=== PATIENT | female | born 1940 | race Caucasian/White ===

== ENCOUNTER 2017-12-05 18:57 | Emergency (ER) | payer MEDICARE ==
[2017-12-05] MEDS ORDERED: HYDROCODONE/ACETAMINOPHEN 10/325 MG TAB ONE (19:19)
== END 2017-12-05 20:23 | disposition home or self-care (01) ==
LOC: EDH 18:57
DX: M10.031 Idiopathic gout, right wrist (principal); I10 Essential (primary) hypertension
CPT/HCPCS: 73090; 73130

== ENCOUNTER 2018-01-19 15:11 | Observation (INO) | payer MEDICARE ==
[~2018-01-19] VITALS: Ht 167.6 cm; Wt 62.0 kg
[2018-01-19 16:42] LABS: BILIRUBIN,URINE Negative (NEGATIVE); COLOR,URINE Yellow (YELLOW); GLUCOSE, URINE (UA) Negative (NEGATIVE); KETONES,URINE Negative (NEGATIVE); LEUKOCYTE ESTERASE ,URINE Large (NEGATIVE); NITRATE,URINE Positive (NEGATIVE); OCCULT BLOOD,URINE Large (NEGATIVE); PH,URINE 7.5 (5.0-8.0); PROTEIN,URINE Negative (NEGATIVE)
[2018-01-19 16:47] LABS: APPEARANCE,URINE TURBID (CLEAR)
[2018-01-19 16:58] LABS: BACTERIA,URINE Many /HPF (None Seen); WBC,URINE 51-100 /HPF (0-1)
[2018-01-19 17:03] LABS: SQUAMOUS EPITHELIAL CELL,UR 0-2 /LPF (0-2)
[2018-01-19 17:24] LABS: BASOPHILS % (AUTO) 0.4 % (0.0-5.0); EOSINOPHILS % (AUTO) 0.4 % (0.0-8.0); HEMATOCRIT 39.9 % (36-48); LYMPHOCYTES % (AUTO) 15.1 % (21.0-51.0); MEAN CORPUSCULAR HEMOGLOBIN 30.7 pg (27.0-33.0); MEAN CORPUSCULAR HGB CONC 34.4 g/dL (32.0-36.0); MEAN CORPUSCULAR VOLUME 89.1 fL (79-99); MONOCYTES % (AUTO) 13.1 % (3.0-13.0); PLATELET COUNT (AUTO) 333 K/uL (130-400); RED BLOOD CELL COUNT(AUTO) 4.47 MIL/uL (4.00-5.50); RED CELL DISTRIBUTION WIDTH 14.1 % (11.0-15.5); WHITE BLOOD COUNT (AUTO) 9.4 K/uL (4.8-10.8)
[2018-01-19 17:33] LABS: CREATININE 1.2 mg/dL (0.5-1.5); INR 0.93 (0.85-1.15); PARTIAL THROMBOPLASTIN TIME 25.4 SEC (26.3-35.5); PROTHROMBIN TIME 9.8 SEC (9.6-11.6)
[2018-01-19 17:37] LABS: ALBUMIN 3.7 g/dL (3.5-5.0); BILIRUBIN,TOTAL 0.4 mg/dL (0.2-1.0); TOTAL PROTEIN, SERUM 8.2 g/dL (6.0-8.3)
[2018-01-19] MEDS ORDERED: CEFTRIAXONE SODIUM 1 GM ONE (20:22)
[2018-01-19 22:06] VITALS: BP 170/74
[2018-01-19] MEDS ORDERED: ZOLPIDEM TARTRATE 5 MG TAB PO PRN (23:00)
[2018-01-19] MEDS ORDERED: CLONIDINE HCL 0.2 MG TABLET PO PRN (23:00)
[2018-01-19] MEDS ORDERED: CEFTRIAXONE 1GM/D5W 50ML 50 ML IV SCH (23:30)
[2018-01-19] MEDS ORDERED: TRAMADOL HCL 50 MG TABLET PO PRN (23:30)
[2018-01-19] MEDS ORDERED: HYDROCODONE/ACETAMINOPHEN 5/325 MG TAB PO PRN (23:30)
[2018-01-19] MEDS ORDERED: SODIUM CHLORIDE 0.9% 1000ML 1,000 ML IV ONE (23:42)
[2018-01-19] MEDS ORDERED: ZOLPIDEM TARTRATE 5 MG TAB ONE (23:43)
[2018-01-19] MEDS ORDERED: CLONIDINE HCL 0.2 MG TABLET PO ONE (23:44)
[2018-01-20] MEDS: CEFTRIAXONE SODIUM 1 GM IVP SCH (00:30)
[2018-01-20 03:30] VITALS: BP_SYST 116; BP_SYST 99; BP_DIAS 59; BP_DIAS 60
[2018-01-20 07:12] LABS: HEMATOCRIT 30.7 % (36-48); MEAN CORPUSCULAR HEMOGLOBIN 31.8 pg (27.0-33.0); MEAN CORPUSCULAR HGB CONC 35.3 g/dL (32.0-36.0); MEAN CORPUSCULAR VOLUME 90.1 fL (79-99); PLATELET COUNT (AUTO) 259 K/uL (130-400); RED CELL DISTRIBUTION WIDTH 14.2 % (11.0-15.5); WHITE BLOOD COUNT (AUTO) 6.2 K/uL (4.8-10.8)
[2018-01-20 07:31] LABS: ALBUMIN 2.6 g/dL (3.5-5.0); BILIRUBIN,TOTAL 0.3 mg/dL (0.2-1.0); CREATININE 1.2 mg/dL (0.5-1.5); POTASSIUM 4.9 mmol/L (3.5-5.1); TOTAL PROTEIN, SERUM 5.9 g/dL (6.0-8.3)
[2018-01-20 08:00] VITALS: BP 111/65
[2018-01-20] MEDS: SODIUM CHLORIDE 0.9% 1000ML 1,000 ML IV SCH ×2 (09:10→23:02)
[2018-01-20] MEDS: PANTOPRAZOLE SODIUM 40 MG TABLET.DR PO SCH (09:11)
[2018-01-20 12:00] VITALS: BP 138/71
[2018-01-20] MEDS ORDERED: VALS320T15 PO (15:07)
[2018-01-20] MEDS ORDERED: MELO-106 PO (15:07)
[2018-01-20 16:00] VITALS: BP 111/60
[2018-01-20 19:05] VITALS: BP 109/55
[2018-01-20 23:35] VITALS: BP 139/60
[2018-01-21] MEDS: CEFTRIAXONE SODIUM 1 GM IVP SCH (00:23)
[2018-01-21] MEDS: SODIUM CHLORIDE 0.9% 1000ML 1,000 ML IV SCH ×2 (04:14→09:17)
[2018-01-21 08:00] VITALS: BP 168/91
[2018-01-21] MEDS ORDERED: MELOXICAM 7.5 MG TABLET PO SCH (09:00)
[2018-01-21] MEDS ORDERED: LOSARTAN 100 MG TABLET PO SCH (09:00)
[2018-01-21] MEDS: PANTOPRAZOLE SODIUM 40 MG TABLET.DR PO SCH (09:14)
[2018-01-21 12:00] VITALS: BP 136/74
== END 2018-01-21 12:46 | disposition home or self-care (01) ==
LOC: EDH 15:11 → EDHIP 20:31 → 3AH 22:15
PROVIDERS: ADMIT Family Medicine; ATTEND Family Medicine
DX: N39.0 Urinary tract infection, site not specified (principal); R10.9 Unspecified abdominal pain; I10 Essential (primary) hypertension; W17.89XA Other fall from one level to another, initial encounter; Y93.89 Activity, other specified; Y92.89 Other specified places as the place of occurrence of the external cause; Y99.8 Other external cause status; Z90.49 Acquired absence of other specified parts of digestive tract
CPT/HCPCS: 36415 ×2; 72131; 72192; 73502; 80053 ×2; 81001; 85025; 85027; 85610; 85730; 87040; 87088; 87186; 96361 ×2; 96374; 97116; 97161; 99285; A4218; G0378 ×40; G8978; G8979; G8980; G8981; G8982; G8983; J0696 ×3; J7030 ×2

== ENCOUNTER → 2018-02-04 | Outpatient (CLI) | payer MEDICARE ==
[~2018-02-04] MED LIST: MELO-106 PO; VALS320T15 PO
== END | disposition home or self-care (01) ==
LOC: OIH 12:26
PROVIDERS: ATTEND Family Medicine
DX: M25.561 Pain in right knee (principal); I10 Essential (primary) hypertension
CPT/HCPCS: 73562

== ENCOUNTER → 2019-02-21 | Outpatient (CLI) | payer MEDICARE ==
[~2019-02-21] MED LIST changes: +ATEN25TA PO; +BIOTIN PO; +CHOL500050 PO; +COQ10 PO; +MULT1CAP32 PO; +SIMV10TA6 PO; +TRAM50TA4 PO; -VALS320T15 PO; +VALS320T16 PO
== END | disposition home or self-care (01) ==
LOC: RAH 13:33
PROVIDERS: ATTEND Orthopaedic Surgery
DX: M16.11 Unilateral primary osteoarthritis, right hip (principal); M70.71 Other bursitis of hip, right hip; K57.90 Diverticulosis of intestine, part unspecified, without perforation or abscess without bleeding
CPT/HCPCS: 73721

== ENCOUNTER → 2019-08-21 | Outpatient (CLI) | payer MEDICARE ==
[~2019-08-21] MED LIST changes: -MELO-106 PO; -SIMV10TA6 PO; +SIMV10TA97 PO
== END | disposition home or self-care (01) ==
LOC: OIH 09:27
PROVIDERS: ATTEND Neurological Surgery
DX: M43.26 Fusion of spine, lumbar region (principal); M51.36 Other intervertebral disc degeneration, lumbar region
CPT/HCPCS: 72100